=== PATIENT | female | born 2000 | race African-American/Black ===

== ENCOUNTER 2022-04-14 14:37 | Emergency (ER) | payer OTHER ==
[~2022-04-14] VITALS: Ht 165.1 cm; Wt 68.2 kg
[2022-04-14 14:38] VITALS: BP 138/89
[2022-04-14 17:04] LABS: BASO % 0.4 % (0.0-1.0); EOS # 0.1 10^3/uL (0.0-0.5); EOS % 0.7 % (0.0-3.0); HEMATOCRIT 42.2 % (36.0-47.0); HEMOGLOBIN 13.8 g/dl (12.0-15.5); LYMPH # 2.1 10^3/uL (1.5-5.0); LYMPH % 28.8 % (24.0-44.0); MEAN CORPUSCULAR HEMOGLOBIN 30.3 pg (27.0-33.0); MEAN CORPUSCULAR HGB CONC 32.7 g/dl (32.0-36.5); MEAN CORPUSCULAR VOLUME 92.7 fl (80.0-96.0); MONO # 0.5 10^3/uL (0.0-0.8); MONO % 6.7 % (2.0-8.0); NEUTROPHILS # 4.6 10^3/uL (1.5-8.5); NEUTROPHILS % 63.1 % (36.0-66.0); PLATELET COUNT, AUTOMATED 283 10^3/uL (150-450); RED BLOOD COUNT 4.55 10^6/uL (4.00-5.40); WHITE BLOOD COUNT 7.3 10^3/uL (4.0-10.0)
[2022-04-14 17:26] LABS: LIPASE 31 U/L (12-53)
[2022-04-14 17:28] LABS: ALBUMIN 4.2 G/DL (3.2-5.2); ALKALINE PHOSPHATASE 70 U/L (46-116); ALT/SGPT 16 U/L (7.0-40); AST/SGOT 22 U/L (<34); BILIRUBIN,DIRECT < 0.1 MG/DL (<0.4); BILIRUBIN,TOTAL 0.3 MG/DL (0.3-1.2); BLOOD UREA NITROGEN 10 MG/DL (9-23); CALCIUM LEVEL 9.3 MG/DL (8.5-10.1); CARBON DIOXIDE LEVEL 25 MMOL/L (20-31); CHLORIDE LEVEL 106 MMOL/L (98-107); CREATININE FOR GFR 0.79 MG/DL (0.55-1.30); GLOMERULAR FILTRATION RATE > 60.0 (>60); GLUCOSE, FASTING 87 MG/DL (60-100); POTASSIUM SERUM 4.2 MMOL/L (3.5-5.1); SODIUM LEVEL 138 MMOL/L (136-145); TOTAL PROTEIN 7.3 G/DL (5.7-8.2)
[2022-04-14 17:35] LABS: HCG, SERUM QUALITATIVE NEGATIVE (NEGATIVE)
[2022-04-14] MEDS ORDERED: KETOROLAC TROMETHAMINE 10 MG TAB PO ONE (20:35)
[2022-04-14] MEDS ORDERED: ACETAMINOPHEN TAB 650MG DOSE (2X325MG) PO ONE (20:35)
[2022-04-14] MEDS ORDERED: KETO10TAB PO (21:13)
[2022-04-14 23:02] LABS: GC DNA AMPLIFICATION NEGATIVE (NEGATIVE)
== END 2022-04-14 21:21 | disposition home or self-care (01) ==
LOC: M ED 14:37
DX: N83.201 Unspecified ovarian cyst, right side (principal); N83.202 Unspecified ovarian cyst, left side; Z87.42 Personal history of other diseases of the female genital tract

== ENCOUNTER 2022-07-14 19:58 | Emergency (ER) | payer OTHER ==
[~2022-07-14] VITALS: Ht 165.1 cm; Wt 81.7 kg
[~2022-07-14 19:58] MED LIST: KETO10TAB PO
[2022-07-14 20:51] LABS: BASO % 0.6 % (0.0-1.0); EOS # 0.1 10^3/uL (0.0-0.5); EOS % 1.1 % (0.0-3.0); HEMATOCRIT 43.2 % (36.0-47.0); HEMOGLOBIN 13.8 g/dl (12.0-15.5); LYMPH # 2.5 10^3/uL (1.5-5.0); LYMPH % 36.2 % (24.0-44.0); MEAN CORPUSCULAR HEMOGLOBIN 30.1 pg (27.0-33.0); MEAN CORPUSCULAR HGB CONC 31.9 g/dl (32.0-36.5); MEAN CORPUSCULAR VOLUME 94.3 fl (80.0-96.0); MONO # 0.7 10^3/uL (0.0-0.8); MONO % 9.3 % (2.0-8.0); NEUTROPHILS # 3.7 10^3/uL (1.5-8.5); NEUTROPHILS % 52.7 % (36.0-66.0); PLATELET COUNT, AUTOMATED 301 10^3/uL (150-450); RED BLOOD COUNT 4.58 10^6/uL (4.00-5.40)
[2022-07-14 20:55] LABS: APPEARANCE, URINE HAZY (CLEAR); BACTERIA, URINE AUTO NEGATIVE (NEGATIVE); BILIRUBIN, URINE AUTO NEGATIVE (NEGATIVE); BLOOD, URINE BLOOD NEGATIVE (NEGATIVE); COLOR, URINE YELLOW (YELLOW); GLUCOSE, URINE (UA) AUTO NEGATIVE (NEGATIVE); KETONE, URINE AUTO TRACE mg/dL (NEGATIVE); LEUKOCYTE ESTERASE, URINE AUTO 1+ (NEGATIVE); MUCUS, URINE SMALL (NEGATIVE); NITRITE, URINE AUTO NEGATIVE (NEGATIVE); PROTEIN, URINE AUTO NEGATIVE (NEGATIVE); RBC, URINE AUTO 0 /HPF (0-3); SPECIFIC GRAVITY URINE AUTO 1.023 (1.002-1.035); SQUAMOUS EPITHELIAL CELL UR AU 6 /HPF (0-6); UROBILINOGEN, URINE AUTO 0.2 mg/dL (0.0-2.0); WBC, URINE AUTO 2 /HPF (0-3)
[2022-07-14 21:11] LABS: HCG, SERUM QUALITATIVE NEGATIVE (NEGATIVE)
[2022-07-14 21:12] LABS: LIPASE 28 U/L (12-53)
[2022-07-14 21:14] LABS: ALKALINE PHOSPHATASE 84 U/L (46-116); ALT/SGPT < 9 U/L (7.0-40); AST/SGOT 28 U/L (<34); BILIRUBIN,DIRECT < 0.1 MG/DL (<0.4); BILIRUBIN,TOTAL 0.3 MG/DL (0.3-1.2); BLOOD UREA NITROGEN 13 MG/DL (9-23); CALCIUM LEVEL 9.8 MG/DL (8.5-10.1); CARBON DIOXIDE LEVEL 26 MMOL/L (20-31); CHLORIDE LEVEL 104 MMOL/L (98-107); GLOMERULAR FILTRATION RATE > 60.0 (>60); GLUCOSE, FASTING 88 MG/DL (60-100); POTASSIUM SERUM 4.3 MMOL/L (3.5-5.1); SODIUM LEVEL 138 MMOL/L (136-145); TOTAL PROTEIN 7.3 G/DL (5.7-8.2)
[2022-07-15 01:05] VITALS: BP 144/87
== END 2022-07-15 03:41 | disposition left against medical advice (07) ==
LOC: M ED 19:58
DX: Z53.21 Procedure and treatment not carried out due to patient leaving prior to being seen by health care provider (principal)

== ENCOUNTER 2023-03-29 21:33 | Emergency (ER) | payer OTHER, SELFPAY ==
[~2023-03-29] VITALS: Ht 165.1 cm; Wt 82.6 kg
[2023-03-29 23:11] LABS: BASO % 0.3 % (0.0-1.0); EOS # 0.1 10^3/uL (0.0-0.5); EOS % 0.8 % (0.0-3.0); LYMPH # 2.8 10^3/uL (1.5-5.0); LYMPH % 37.1 % (24.0-44.0); MEAN CORPUSCULAR HEMOGLOBIN 29.9 pg (27.0-33.0); MEAN CORPUSCULAR HGB CONC 32.6 g/dl (32.0-36.5); MEAN CORPUSCULAR VOLUME 91.9 fl (80.0-96.0); MONO # 0.7 10^3/uL (0.0-0.8); MONO % 9.3 % (2.0-8.0); NEUTROPHILS % 52.5 % (36.0-66.0); PLATELET COUNT, AUTOMATED 288 10^3/uL (150-450); RED BLOOD COUNT 4.68 10^6/uL (4.00-5.40); WHITE BLOOD COUNT 7.7 10^3/uL (4.0-10.0)
[2023-03-29 23:46] LABS: BLOOD UREA NITROGEN 10 MG/DL (9-23); CALCIUM LEVEL 9.6 MG/DL (8.5-10.1); CARBON DIOXIDE LEVEL 24 MMOL/L (20-31); CHLORIDE LEVEL 107 MMOL/L (98-107); CREATININE FOR GFR 0.78 MG/DL (0.55-1.30); GLOMERULAR FILTRATION RATE > 60.0 (>60); GLUCOSE, FASTING 93 MG/DL (60-100); POTASSIUM SERUM 4.2 MMOL/L (3.5-5.1); SODIUM LEVEL 135 MMOL/L (136-145)
[2023-03-29 23:55] LABS: HCG, SERUM QUALITATIVE POSITIVE (NEGATIVE)
[2023-03-30] MEDS ORDERED: ACETAMINOPHEN TAB 650MG DOSE (2X325MG) PO ONE (04:35)
[2023-03-30 07:21] LABS: HCG, SERUM QUANTITATIVE 59.5 MIU/ML (<4.2)
[2023-03-30 08:04] VITALS: BP 129/94; TEMP 98.4; O2SAT 99
== END 2023-03-30 08:10 | disposition home or self-care (01) ==
LOC: M ED 21:33
DX: O46.90 Antepartum hemorrhage, unspecified, unspecified trimester (principal); R10.2 Pelvic and perineal pain; Z87.42 Personal history of other diseases of the female genital tract; Z3A.00 Weeks of gestation of pregnancy not specified

== ENCOUNTER → 2023-04-01 | Outpatient (CLI) | payer SELFPAY | LOC: M LAB 08:06 | PROVIDERS: ATTEND Emergency Medicine | DX: O20.0 Threatened abortion (principal); Z3A.00 Weeks of gestation of pregnancy not specified ==

== ENCOUNTER → 2023-05-20 | Outpatient (CLI) | payer OTHER ==
[2023-05-20 13:59] LABS: HEMATOCRIT 44.9 % (36.0-47.0); HEMOGLOBIN 14.7 g/dl (12.0-15.5); MEAN CORPUSCULAR HEMOGLOBIN 30.4 pg (27.0-33.0); MEAN CORPUSCULAR HGB CONC 32.7 g/dl (32.0-36.5); PLATELET COUNT, AUTOMATED 309 10^3/uL (150-450); RED BLOOD COUNT 4.83 10^6/uL (4.00-5.40); WHITE BLOOD COUNT 6.2 10^3/uL (4.0-10.0)
[2023-05-20 14:58] LABS: HIV 1&2 SCREEN NEGATIVE (NEGATIVE)
[2023-05-20 15:04] LABS: HEPATITIS C VIRUS ABY INDEX 0.03 INDEX (<0.8)
[2023-05-20 16:02] LABS: GC DNA AMPLIFICATION NEGATIVE (NEGATIVE)
== END ==
LOC: M PLALAB 10:52
PROVIDERS: ATTEND Advanced Practice Midwife
DX: Z34.01 Encounter for supervision of normal first pregnancy, first trimester (principal)

== ENCOUNTER → 2023-05-20 | Outpatient (REF) | payer OTHER | LOC: M PLALAB 09:53 | PROVIDERS: ATTEND Advanced Practice Midwife | DX: Z34.01 Encounter for supervision of normal first pregnancy, first trimester (principal); Z53.8 Procedure and treatment not carried out for other reasons ==

== ENCOUNTER 2023-07-09 07:18 | Emergency (ER) | payer OTHER ==
[~2023-07-09] VITALS: Ht 167.6 cm; Wt 85.7 kg
[2023-07-09] MEDS ORDERED: ACET1TAB55 PO (07:29)
[2023-07-09] MEDS ORDERED: LIDO5DIS41 TOP (08:58)
[2023-07-09] MEDS: LIDOCAINE 5% (LIDODERM) PATCH TD ONE (09:00)
[2023-07-09 09:05] VITALS: BP 117/69; TEMP 98.7; O2SAT 99
== END 2023-07-09 09:08 | disposition home or self-care (01) ==
LOC: M ED 07:18
DX: S76.012A Strain of muscle, fascia and tendon of left hip, initial encounter (principal); Y92.9 Unspecified place or not applicable; Y93.9 Activity, unspecified; Y99.0 Civilian activity done for income or pay; Z91.040 Latex allergy status; Z91.018 Allergy to other foods; Z91.013 Allergy to seafood; Z79.1 Long term (current) use of non-steroidal anti-inflammatories (NSAID); Z79.899 Other long term (current) drug therapy

== ENCOUNTER → 2023-07-11 | Outpatient (CLI) | payer OTHER ==
[~2023-07-11] MED LIST changes: +ACET1TAB55 PO; +LIDO5DIS41 TOP
== END ==
LOC: M WHC 10:10
PROVIDERS: ATTEND Obstetrics & Gynecology
DX: Z34.92 Encounter for supervision of normal pregnancy, unspecified, second trimester (principal)

== ENCOUNTER 2023-08-23 21:02 | Outpatient (CLI) | payer OTHER ==
[~2023-08-23] VITALS: Ht 165.1 cm; Wt 87.9 kg
[2023-08-23 21:10] VITALS: BP 163/108
[2023-08-23 21:27] VITALS: BP 140/60
[2023-08-23 21:42] VITALS: BP 146/65
[2023-08-23 21:58] VITALS: BP 126/71
[2023-08-23 22:12] VITALS: BP 127/69
[2023-08-23 22:27] VITALS: BP 124/65
== END 2023-08-24 00:51 | disposition home or self-care (01) ==
LOC: M LDO 21:02
PROVIDERS: ATTEND Obstetrics & Gynecology
DX: O26.892 Other specified pregnancy related conditions, second trimester (principal); R25.2 Cramp and spasm; W19.XXXA Unspecified fall, initial encounter; Y92.9 Unspecified place or not applicable; Y93.9 Activity, unspecified; Y99.9 Unspecified external cause status; Z3A.25 25 weeks gestation of pregnancy
CPT/HCPCS: 59025; 76815; 76819; G0463

== ENCOUNTER → 2023-08-30 | Outpatient (CLI) | payer OTHER ==
[2023-08-30 12:41] LABS: HEMATOCRIT 40.1 % (36.0-47.0); MEAN CORPUSCULAR HEMOGLOBIN 30.7 pg (27.0-33.0); MEAN CORPUSCULAR HGB CONC 32.4 g/dl (32.0-36.5); MEAN CORPUSCULAR VOLUME 94.6 fl (80.0-96.0); PLATELET COUNT, AUTOMATED 234 10^3/uL (150-450); RED BLOOD COUNT 4.24 10^6/uL (4.00-5.40); WHITE BLOOD COUNT 8.3 10^3/uL (4.0-10.0)
[2023-08-30 12:42] LABS: GLUCOSE CHALLENGE TEST 1 HOUR 112 MG/DL (LESS THAN 140)
[2023-08-30 13:12] LABS: HIV 1&2 SCREEN NEGATIVE (NEGATIVE)
[2023-08-30 14:07] LABS: GC DNA AMPLIFICATION NEGATIVE (NEGATIVE)
== END ==
LOC: M PLALAB 09:11
PROVIDERS: ATTEND Advanced Practice Midwife
DX: Z34.02 Encounter for supervision of normal first pregnancy, second trimester (principal)

== ENCOUNTER → 2023-11-10 | Outpatient (REF) | payer OTHER ==
[~2023-11-10] MED LIST changes: +PRENTAB9 PO
== END ==
LOC: M SFHCWAGY 09:50
PROVIDERS: ATTEND Obstetrics & Gynecology
DX: Z36.89 Encounter for other specified antenatal screening (principal); Z3A.36 36 weeks gestation of pregnancy

== ENCOUNTER → 2023-11-10 | Outpatient (REF) | payer OTHER | LOC: M PLALAB 08:14 | PROVIDERS: ATTEND Obstetrics & Gynecology | DX: Z36.89 Encounter for other specified antenatal screening (principal); Z3A.36 36 weeks gestation of pregnancy ==

== ENCOUNTER 2023-11-13 18:32 | Outpatient (CLI) | payer OTHER ==
[~2023-11-13] VITALS: Ht 165.1 cm; Wt 92.4 kg
[~2023-11-13 18:32] MED LIST changes: -PRENTAB9 PO
[2023-11-13] MEDS ORDERED: PRENTAB9 PO (18:48)
[2023-11-13 18:50] VITALS: BP 126/71
[2023-11-13] MEDS ORDERED: HOME MED LIST COMPLETE! XX SCH (18:50)
== END 2023-11-13 21:15 | disposition home or self-care (01) ==
LOC: M LDO 18:32
PROVIDERS: ATTEND Advanced Practice Midwife
DX: O36.8130 Decreased fetal movements, third trimester, not applicable or unspecified (principal); Z3A.36 36 weeks gestation of pregnancy
CPT/HCPCS: 59025; 76815; 76819; 76820; G0463

== ENCOUNTER → 2023-11-23 | Outpatient (CLI) | payer OTHER ==
[~2023-11-23] MED LIST changes: +PRENTAB9 PO
[2023-11-23 18:34] LABS: HEMATOCRIT 38.9 % (36.0-47.0); HEMOGLOBIN 12.3 g/dl (12.0-15.5); MEAN CORPUSCULAR HEMOGLOBIN 29.6 pg (27.0-33.0); MEAN CORPUSCULAR HGB CONC 31.6 g/dl (32.0-36.5); MEAN CORPUSCULAR VOLUME 93.5 fl (80.0-96.0); PLATELET COUNT, AUTOMATED 183 10^3/uL (150-450); RED BLOOD COUNT 4.16 10^6/uL (4.00-5.40); WHITE BLOOD COUNT 7.1 10^3/uL (4.0-10.0)
[2023-11-23 18:55] LABS: URIC ACID 5.6 MG/DL (3.1-7.8)
[2023-11-23 18:57] LABS: LDH LACTATE DEHYDROGENASE 194 U/L (120-246)
[2023-11-23 18:58] LABS: ALT/SGPT 24 U/L (7.0-40); AST/SGOT 22 U/L (<34); BILIRUBIN,TOTAL 0.5 MG/DL (0.3-1.2); CREATININE FOR GFR 0.66 MG/DL (0.55-1.30); GLOMERULAR FILTRATION RATE > 60.0 (>60)
[2023-11-23 19:00] LABS: TOTAL PROTEIN,RANDOM URINE 20.6 MG/DL (0.0-14.0)
[2023-11-23 19:03] LABS: CREATININE,RANDOM URINE 180.1 MG/DL
== END ==
LOC: M PLALAB 15:46
PROVIDERS: ATTEND Advanced Practice Midwife
DX: O16.3 Unspecified maternal hypertension, third trimester (principal)

== ENCOUNTER 2023-11-24 10:58 | Inpatient (IN) | payer OTHER ==
[~2023-11-24] VITALS: Ht 165.1 cm; Wt 92.4 kg
[2023-11-24] VITALS (7 sets, daily range): BP systolic 122–156; BP diastolic 63–98
[2023-11-24 12:04] LABS: HEMATOCRIT 37.1 % (36.0-47.0); HEMOGLOBIN 11.9 g/dl (12.0-15.5); MEAN CORPUSCULAR HEMOGLOBIN 29.9 pg (27.0-33.0); MEAN CORPUSCULAR HGB CONC 32.1 g/dl (32.0-36.5); MEAN CORPUSCULAR VOLUME 93.2 fl (80.0-96.0); PLATELET COUNT, AUTOMATED 167 10^3/uL (150-450); RED BLOOD COUNT 3.98 10^6/uL (4.00-5.40); WHITE BLOOD COUNT 5.9 10^3/uL (4.0-10.0)
[2023-11-24 12:23] LABS: URIC ACID 5.1 MG/DL (3.1-7.8)
[2023-11-24 12:25] LABS: LDH LACTATE DEHYDROGENASE 179 U/L (120-246)
[2023-11-24 12:26] LABS: ALT/SGPT 23 U/L (7.0-40); AST/SGOT 20 U/L (<34); BILIRUBIN,TOTAL 0.5 MG/DL (0.3-1.2); CREATININE FOR GFR 0.58 MG/DL (0.55-1.30); GLOMERULAR FILTRATION RATE > 60.0 (>60)
[2023-11-24 12:33] LABS: TOTAL PROTEIN,RANDOM URINE 8.2 MG/DL (0.0-14.0)
[2023-11-24 12:38] LABS: CREATININE,RANDOM URINE 53.4 MG/DL
[2023-11-24] MEDS ORDERED: OXYTOCIN DRIP 30 UNITS in IV 1 EA IV PRN (13:10)
[2023-11-24] MEDS ORDERED: LIDOCAINE 1% MDV 20ML VIAL INFIL PRN (13:10)
[2023-11-24] MEDS: miSOPROStol 50MCG 1/2 TABLET SL SCH (14:08)
[2023-11-24 15:28] LABS: HEPATITIS C VIRUS ABY INDEX 0.02 INDEX (<0.8)
[2023-11-25] VITALS (40 sets, daily range): BP systolic 102–153; BP diastolic 55–97
[2023-11-25] MEDS: ACETAMINOPHEN 500 MG TAB PO ONE (05:11)
[2023-11-25] MEDS: ACETAMINOPHEN 500 MG TAB PO PRN (09:26)
[2023-11-25] MEDS: OXYTOCIN DRIP 30 UNITS in IV 1 EA IV SCH (09:27)
[2023-11-25] MEDS: LR 1,000 ML IV ONE (09:35)
[2023-11-25] MEDS: PROMETHAZINE 25MG/ML 1ML VIAL IV ONE (12:08)
[2023-11-25] MEDS: LR 1,000 ML IV SCH (12:08)
[2023-11-25] MEDS: BUTORPHANOL 2 MG/ML 1ML VIAL IV ONE (12:09)
[2023-11-25] MEDS ORDERED: HOME MED LIST COMPLETE! XX SCH (13:45)
[2023-11-25] MEDS: ONDANSETRON 4MG 2ML VIAL IV PRN (16:23)
[2023-11-25] MEDS ORDERED: ONDANSETRON 4MG 2ML VIAL IV PRN (16:35)
[2023-11-25] MEDS ORDERED: LR 500 ML IV PRN (16:35)
[2023-11-25] MEDS ORDERED: NALOXONE INJ 0.4MG/1ML VIAL IV PRN (16:35)
[2023-11-25] MEDS ORDERED: diphenhydrAMINE 50MG/ML VIAL IV PRN (16:35)
[2023-11-25] MEDS ORDERED: EPIDURAL/PCA KEYS XX PRN (16:35)
[2023-11-25] MEDS: FENTANYL/ROPIVACAINE/NACL BAG 100 ML EPIDURAL SCH (17:02)
[2023-11-25] MEDS: ePHEDrine SULFATE 25 MG/5 ML(5MG/ML) SYRINGE IVP PRN (23:09)
[2023-11-26] VITALS (18 sets, daily range): BP systolic 113–143; BP diastolic 53–79; O2SAT 98–100
[2023-11-26] MEDS: PRENATAL VITAMINS CHEWABLE TABLET PO SCH (09:00)
[2023-11-26] MEDS ORDERED: IBUPROFEN 800 MG TAB PO PRN (09:25)
[2023-11-26] MEDS: OXYTOCIN DRIP 30 UNITS in IV 1 EA IV SCH (09:25)
[2023-11-26] MEDS ORDERED: METHYLERGONOVINE MALEATE 0.2 MG TAB PO PRN (09:25)
[2023-11-26] MEDS ORDERED: IBUPROFEN 600MG TAB PO PRN (09:25)
[2023-11-26] MEDS ORDERED: ANUSOL HC CREAM 30GM TOP PRN (09:25)
[2023-11-26] MEDS ORDERED: CALCIUM CARBONATE 500 MG CHEW U/D PO PRN (09:25)
[2023-11-26] MEDS ORDERED: MOM 30ML SUSPENSION UDC PO PRN (09:25)
[2023-11-26] MEDS ORDERED: RHO(D) IMMUNE GLOBULIN/MALTOSE 500MCG(2500IU)/2.2ML VIAL (WINRHO) IM SCH (09:25)
[2023-11-26] MEDS ORDERED: ACETAMINOPHEN 500 MG TAB PO PRN (09:25)
[2023-11-26] MEDS: DIBUCAINE 1% OINTMENT 30GM TOP PRN (20:17)
[2023-11-27] MEDS: ACETAMINOPHEN TAB 650MG DOSE (2X325MG) PO PRN (03:18)
[2023-11-27 05:50] VITALS: BP 122/74; O2SAT 99
[2023-11-27 18:55] VITALS: BP 137/79; O2SAT 99
[2023-11-27] MEDS: DOCUSATE SODIUM 100MG CAPSULE PO PRN (20:21)
[2023-11-28 06:00] VITALS: BP 133/70; O2SAT 99
[2023-11-28] MEDS: MEASLES,MUMPS,RUBELLA VACCINE INJ (MMR-II) SC.IMMUN ONE (09:00)
[2023-11-28] MEDS ORDERED: IBUP80TA PO (11:33)
[2023-11-28] MEDS ORDERED: ACET-683 PO (11:33)
[2023-11-28] MEDS: FLUZONE VACCINE TRIVALENT PF(2024-25) 0.5ML SYRINGE IM.IMMUN ONE (14:05)
== END 2023-11-28 14:25 | disposition home or self-care (01) | DRG 807 ==
LOC: M LDO 10:58 → M LDI 12:55 → M OBS 11-26 10:55
PROVIDERS: ADMIT Specialist; ATTEND Obstetrics & Gynecology
PROC: 3E0P7GC Introduction of Other Therapeutic Substance into Female Reproductive, Via Natural or Artificial Opening (ICD-10-PCS; 2023-11-24)
PROC: 10E0XZZ Delivery of Products of Conception, External Approach (ICD-10-PCS; principal; 2023-11-26)
DX: O13.4 Gestational [pregnancy-induced] hypertension without significant proteinuria, complicating childbirth (principal); Z37.0 Single live birth; Z3A.38 38 weeks gestation of pregnancy; Z91.013 Allergy to seafood; Z91.018 Allergy to other foods; Z91.040 Latex allergy status; O69.81X0 Labor and delivery complicated by cord around neck, without compression, not applicable or unspecified

== ENCOUNTER → 2024-03-02 | Outpatient (REF) | payer OTHER ==
[~2024-03-02] MED LIST changes: +ACET-683 PO; +IBUP80TA PO
[2024-03-02 18:24] LABS: BASO % 0.7 % (0.0-1.0); EOS # 0.1 10^3/uL (0.0-0.5); EOS % 2.7 % (0.0-3.0); HEMATOCRIT 42.6 % (36.0-47.0); HEMOGLOBIN 13.8 g/dl (12.0-15.5); LYMPH # 1.7 10^3/uL (1.5-5.0); LYMPH % 41.5 % (24.0-44.0); MEAN CORPUSCULAR HEMOGLOBIN 29.9 pg (27.0-33.0); MEAN CORPUSCULAR HGB CONC 32.4 g/dl (32.0-36.5); MEAN CORPUSCULAR VOLUME 92.4 fl (80.0-96.0); MONO # 0.4 10^3/uL (0.0-0.8); MONO % 10.1 % (2.0-8.0); NEUTROPHILS # 1.8 10^3/uL (1.5-8.5); PLATELET COUNT, AUTOMATED 303 10^3/uL (150-450); RED BLOOD COUNT 4.61 10^6/uL (4.00-5.40); WHITE BLOOD COUNT 4.1 10^3/uL (4.0-10.0)
[2024-03-02 18:50] LABS: ALKALINE PHOSPHATASE 80 U/L (35-104); ALT/SGPT 32 U/L (7.0-40); AST/SGOT 20 U/L (<34); BILIRUBIN,TOTAL 0.3 MG/DL (0.3-1.2); BLOOD UREA NITROGEN 11 MG/DL (9-23); CARBON DIOXIDE LEVEL 29 MMOL/L (20-31); CHLORIDE LEVEL 106 MMOL/L (98-107); CHOLESTEROL LEVEL 203 MG/DL (<200); CREATININE FOR GFR 0.91 MG/DL (0.55-1.30); GLOMERULAR FILTRATION RATE > 60.0 (>60); GLUCOSE, FASTING 71 MG/DL (60-100); HDL CHOLESTEROL 53.4 MG/DL (>40); LDL CHOLESTEROL 131.6 MG/DL (<100); NON-HDL-C 149.6 MG/DL; SODIUM LEVEL 142 MMOL/L (136-145); TOTAL PROTEIN 7.3 G/DL (5.7-8.2); TRIGLYCERIDES LEVEL 90 MG/DL (<150)
[2024-03-02 18:54] LABS: THYROID STIMULATING HORMONE 0.386 uIU/ML (0.55-4.78)
== END ==
LOC: M LAB REF 16:10
PROVIDERS: ATTEND Nurse Practitioner Family
DX: E66.3 Overweight (principal); R53.83 Other fatigue

== ENCOUNTER → 2024-09-26 | Outpatient (REF) | payer OTHER ==
[~2024-09-26] MED LIST changes: +LIDO1ADH93 TOP; -LIDO5DIS41 TOP
== END ==
LOC: M PLALAB 14:18
PROVIDERS: ATTEND Advanced Practice Midwife
DX: Z34.81 Encounter for supervision of other normal pregnancy, first trimester (principal)

== ENCOUNTER → 2024-09-26 | Outpatient (CLI) | payer OTHER ==
[2024-09-26 18:17] LABS: PLATELET COUNT, AUTOMATED 321 10^3/uL (150-450)
[2024-09-26 18:19] LABS: LDH LACTATE DEHYDROGENASE 196 U/L (120-246)
[2024-09-26 18:20] LABS: ALT/SGPT 15 U/L (7.0-40); AST/SGOT 18 U/L (<34); CREATININE FOR GFR 0.60 MG/DL (0.55-1.30); GLOMERULAR FILTRATION RATE > 90.0 (>60)
[2024-09-26 18:38] LABS: TOTAL PROTEIN,RANDOM URINE 6.4 MG/DL (0.0-14.0)
[2024-09-26 18:52] LABS: HIV 1&2 SCREEN NEGATIVE (NEGATIVE)
[2024-09-26 19:01] LABS: HEPATITIS C VIRUS ABY INDEX < 0.02 INDEX (<0.8)
[2024-09-26 20:24] LABS: GC DNA AMPLIFICATION NEGATIVE (NEGATIVE)
[2024-09-26 20:32] LABS: Trichomonas vaginalis (AMP) NOT DETECTED (NEGATIVE)
== END ==
LOC: M PLALAB 14:29
PROVIDERS: ATTEND Advanced Practice Midwife
DX: Z34.81 Encounter for supervision of other normal pregnancy, first trimester (principal)

== ENCOUNTER → 2024-11-01 | Outpatient (REF) | payer OTHER | LOC: M LAB REF 11:54 | PROVIDERS: ATTEND Physician Assistant | DX: B34.9 Viral infection, unspecified (principal) ==

== ENCOUNTER → 2024-11-08 | Outpatient (CLI) | payer OTHER | LOC: M RAD 14:22 | PROVIDERS: ATTEND Nurse Practitioner Family | DX: Z34.82 Encounter for supervision of other normal pregnancy, second trimester (principal); Z3A.18 18 weeks gestation of pregnancy ==

== ENCOUNTER → 2024-11-29 | Outpatient (CLI) | payer OTHER | LOC: M RAD 15:22 | PROVIDERS: ATTEND Nurse Practitioner Family | DX: Z34.82 Encounter for supervision of other normal pregnancy, second trimester (principal); Z3A.21 21 weeks gestation of pregnancy ==

== ENCOUNTER → 2025-01-04 | Outpatient (CLI) | payer OTHER ==
[2025-01-04 13:34] LABS: PLATELET COUNT, AUTOMATED 250 10^3/uL (150-450)
[2025-01-04 14:03] LABS: GLUCOSE CHALLENGE TEST 1 HOUR 106 MG/DL (LESS THAN 140)
[2025-01-04 14:27] LABS: HIV 1&2 SCREEN NEGATIVE (NEGATIVE)
[2025-01-04 14:35] LABS: HEPATITIS C VIRUS ABY INDEX < 0.02 INDEX (<0.8)
[2025-01-04 15:05] LABS: Trichomonas vaginalis (AMP) NOT DETECTED (NEGATIVE)
[2025-01-04 15:29] LABS: GC DNA AMPLIFICATION NEGATIVE (NEGATIVE)
== END ==
LOC: M PLALAB 09:02
PROVIDERS: ATTEND Advanced Practice Midwife
DX: Z34.92 Encounter for supervision of normal pregnancy, unspecified, second trimester (principal)

== ENCOUNTER 2025-01-28 07:33 | Emergency (ER) | payer OTHER ==
[~2025-01-28] VITALS: Ht 167.6 cm; Wt 88.0 kg
[2025-01-28 07:34] VITALS: BP 124/73; TEMP 96.9; O2SAT 98
[2025-01-28] MEDS ORDERED: ECOT81TA5 PO (08:17)
[2025-01-28] MEDS ORDERED: ONDA-83 PO (11:37)
== END 2025-01-28 07:37 | disposition admitted as inpatient to this hospital (09) ==
LOC: M ED 07:33
DX: Z53.21 Procedure and treatment not carried out due to patient leaving prior to being seen by health care provider (principal)

== ENCOUNTER 2025-01-28 07:41 | Outpatient (CLI) | payer OTHER ==
[~2025-01-28] VITALS: Ht 167.6 cm; Wt 88.4 kg
[2025-01-28 07:59] VITALS: BP 127/68
[2025-01-28] MEDS ORDERED: ECOT81TA5 PO (08:17)
[2025-01-28] MEDS ORDERED: HOME MED LIST COMPLETE! XX SCH (08:20)
[2025-01-28] MEDS: LR 1,000 ML IV SCH (08:45)
[2025-01-28] MEDS: ONDANSETRON 4MG/2ML VIAL IV ONE (08:55)
[2025-01-28 10:12] VITALS: BP 132/78
[2025-01-28 11:25] VITALS: BP 115/69
[2025-01-28] MEDS ORDERED: ONDA-83 PO (11:37)
== END 2025-01-28 12:57 | disposition home or self-care (01) ==
LOC: M LDO 07:41
PROVIDERS: ATTEND Advanced Practice Midwife
DX: O21.8 Other vomiting complicating pregnancy (principal); Z14.8 Genetic carrier of other disease; Z87.59 Personal history of other complications of pregnancy, childbirth and the puerperium; Z3A.29 29 weeks gestation of pregnancy
CPT/HCPCS: 59025; 87486; 87581; 87633; 87798; 96360; 96361; 96374; 96375; 99281; G0463; J2405; J2765

== ENCOUNTER → 2025-02-18 | Outpatient (CLI) | payer OTHER ==
[~2025-02-18] MED LIST changes: +ECOT81TA5 PO; +ONDA-83 PO
[2025-02-18 17:23] LABS: PLATELET COUNT, AUTOMATED 258 10^3/uL (150-450)
[2025-02-18 17:45] LABS: TOTAL PROTEIN,RANDOM URINE 19.3 MG/DL (0.0-14.0)
[2025-02-18 18:35] LABS: LDH LACTATE DEHYDROGENASE 167 U/L (120-246)
[2025-02-18 18:36] LABS: ALT/SGPT 23 U/L (7.0-40); AST/SGOT 21 U/L (<34); CREATININE FOR GFR 0.53 MG/DL (0.55-1.30); GLOMERULAR FILTRATION RATE > 90.0 (>60)
== END ==
LOC: M PLALAB 14:41
PROVIDERS: ATTEND Obstetrics & Gynecology
DX: O13.9 Gestational [pregnancy-induced] hypertension without significant proteinuria, unspecified trimester (principal)

== ENCOUNTER → 2025-02-18 | Outpatient (REF) | payer OTHER | LOC: M PLALAB 14:06 | PROVIDERS: ATTEND Obstetrics & Gynecology | DX: O13.9 Gestational [pregnancy-induced] hypertension without significant proteinuria, unspecified trimester (principal) ==

== ENCOUNTER → 2025-03-04 | Outpatient (CLI) | payer OTHER | LOC: M RAD 06:58 | PROVIDERS: ATTEND Obstetrics & Gynecology | DX: O13.9 Gestational [pregnancy-induced] hypertension without significant proteinuria, unspecified trimester (principal) ==